=== PATIENT | male | born 1990 | race Caucasian/White ===

== ENCOUNTER 2016-08-18 03:47 | Emergency (ER) | payer SELFPAY ==
[~2016-08-18 03:47] MED LIST: DURICEF500 MG PO
[2016-08-18] MEDS ORDERED: TRAZODONE HCL100 M1 PO (04:10)
[2016-08-18] MEDS ORDERED: LITHOBID300 M1 PO (04:11)
== END 2016-08-18 05:00 ==
LOC: EDMED 03:47
DX: F31.9 Bipolar disorder, unspecified (principal); F17.200 Nicotine dependence, unspecified, uncomplicated; Z59.0 Homelessness